=== PATIENT | male | born 1940 | race Caucasian/White ===

== ENCOUNTER → 2024-05-29 09:50 | Outpatient (REF) | payer MEDICARE, SELFPAY | LOC: RAD 09:50 | PROVIDERS: ATTENDING PHYSICIAN Physician Assistant; FAMILY PHYSICIAN Family Medicine | DX: K55.1 Chronic vascular disorders of intestine (principal); I73.9 Peripheral vascular disease, unspecified | CPT/HCPCS: 93922; 93925; 93975 ==

== ENCOUNTER → 2024-09-18 10:01 | Outpatient (REF) | payer MEDICARE, SELFPAY | LOC: RAD 10:01 | PROVIDERS: ATTENDING PHYSICIAN Surgery Vascular Surgery; FAMILY PHYSICIAN Family Medicine | DX: I73.9 Peripheral vascular disease, unspecified (principal) | CPT/HCPCS: 93922; 93925 ==

== ENCOUNTER 2025-01-06 18:54 | Emergency (ER) | payer MEDICARE, SELFPAY ==
[2025-01-06 18:58] VITALS: BP 123/72
[2025-01-06 19:46] LABS: % Basophils 0.9 % (0-2); % Eosinophils 2.5 % (0-6); % Immature Granulocytes 0.3 % (0-0.5); % Lymphocytes 9.8 % (20.5-51.1); % Monocytes 6.9 % (1.7-9.3); % Neutrophils 79.6 % (42.2-75.2); ALT (SGPT) 15 U/L (0-50); AST (SGOT) 25 U/L (17-59); Absolute Basophils 0.1 10^3/uL (0-0.2); Absolute Eosinophils 0.3 10^3/uL (0-0.7); Absolute Lymphocytes 1.1 10^3/uL (1.2-3.4); Absolute Monocytes 0.8 10^3/uL (0.1-0.6); Absolute Neutrophils 8.7 10^3/uL (1.4-6.5); Albumin 4.5 g/dl (3.5-5.0); Alkaline Phosphatase 89 U/L (38-126); Blood Urea Nitrogen 28 mg/dl (9-20); Carbon Dioxide 27 mmol/L (22-30); Chloride 103 mmol/L (98-107); Glucose 189 mg/dl (70-99); Hematocrit 46.9 % (39.0-52.0); Hemoglobin 15.8 g/dL (13.0-18.0); Mean Corp Hgb Conc. 33.7 g/dL (33.0-37.0); Mean Corpuscular Hgb 29.4 pg (27.0-31.0); Mean Corpuscular Volume 87.3 fL (80.0-94.0); Mean Platelet Volume 11.2 fL (7.4-10.4); Nucleated Red Blood Cells % 0 % (-); Platelet Count 146 10^3/uL (130-400); Potassium 4.7 mmol/L (3.5-5.1); Red Blood Cell Count 5.37 10^6/uL (4.70-6.10); Red Cell Dist. Width 13.1 % (11.5-14.5); Sodium 138 mmol/L (135-145); Total Bilirubin 0.7 mg/dl (0.2-1.3); Total Protein 7.5 g/dl (6.3-8.2); White Blood Cell Count 10.9 10^3/uL (4.8-10.8); eGFR 45.62
[2025-01-06 20:05] LABS: Lipase 114 U/L (23-300)
--- NOTE | 2025-01-06 21:04 | ED.GENMED ---
History of Present Illness
General
Chief Complaint: Abdominal Pain
Time Seen by Provider: 01/06/25 20:59
History of Present Illness
History of Present Illness:
TIME OF INITIAL ENCOUNTER:
HPI: The patient has a history of vascular disease known to Dr. Lin. Today, he took a nap after lunch and woke up with diffuse abdominal pain. It was described as relatively severe earlier but currently has spontaneously improved significantly.
He states his appetite is normal currently. He denies any nausea vomiting or diarrhea. He has no chest pain.
EXAM:
GENERAL: Well appearing in no distress
HEENT: Moist oral mucosa
CARDIOVASCULAR: No murmurs, normal heart rate, regular rhythm, No chest wall tenderness
PULMONARY: No respiratory distress, breath sounds are clear and equal
ABDOMEN: Soft with no peritoneal signs, mild diffuse abdominal tenderness more so in the left upper quadrant
NEUROLOGIC: Excellent strength all extremities, no coordination deficits
PSYCHIATRIC: Appropriate mental status, normal insight and judgement
EXTREMITIES: Nontender, no edema, moves all extremities equally
SKIN: No rash, no lesions
NUMBER AND COMPLEXITY OF PROBLEMS ADDRESSED AT THE ENCOUNTER
� Chronic conditions affecting care: CAD, high blood pressure, hyperlipidemia, GERD, diabetes, has had arterial vascular procedures at the carotid and lower extremities
� Acute Exacerbation and/or Progression of Chronic Illness: This is an acute problem
� Differential Diagnosis includes: Viral syndrome, mesenteric ischemia, doubt bowel obstruction
AMOUNT AND/OR COMPLEXITY OF DATA TO BE REVIEWED AND ANALYZED
� I performed an independent evaluation of and my interpretation is:
EKG:
CT: CT imaging personally reviewed and I agree with radiologist interpretation
X-rays:
Laboratory Studies: White count slightly elevated 10.9, hemoglobin normal, mild renal insufficiency with a creatinine of 1.5 is near baseline
Other:
� Review of other/old records: I reviewed records. 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
� Clinical information was obtained by an independent historian: Spoke to at bedside
� Prescriptions/Medications Considered but not given:
� Further testing considered but not performed:
RISK OF COMPLICATIONS AND/OR MORBIDITY OR MORTALITY OF PATIENT MANAGEMENT
� Social determinants of health affecting care: Lives at home
� Discussion with other providers:
� Escalation of care including admission/observation vs risk of discharge considered: The patient does have renal insufficiency but is near baseline�he was given IV fluids as he was given IV contrast tonight. He states that his
symptoms have spontaneously improved even prior to arrival.
ANY OTHER UPDATES:
10:45 PM: I reassessed patient. He was only given IV fluids without any other analgesia. He continues to overall feel improved.
Past History
Past History
ED Past Medical History: CAD, HTN, Hypercholesterolemia, NIDDM and Other (Hypercholesterolemia,)
ED Past Surgical History: Cardiac (CABG, Stents)
Social History
Tobacco: Former smoker
Alcohol: Occasional
Personal:
Living: with family
Family History
Family History: Negative Diabetes, Hypertension or CAD
Phy Exam
Physical Exam
Physical Exam:
See HPI
Course
Orders/Labs/Results
Orders:
Orders
01/06/25 19:01
Electrocardiogram (*1) Urgent
Reason for Study: Abdominal Pain
EKG- Treatment ONCE
01/06/25 19:09
Complete Blood Count/With Diff Urgent
Comprehensive Metabolic Panel Urgent
Lipase Urgent
01/06/25 21:08
CT Abd/pelvis Angio W/wo Iv Urgent
Comment:
Reason For Exam: diffuse abd pain; known>75% stenosis at SMA origin
01/06/25 21:12
0.9% Sodium Chloride 1000 ml [Nss] 1,000 ml IV BOLUS
01/06/25 21:32
Lactic Acid Urgent
Abnormal Lab Results
01/06/25
19:09
WBC 10.9 H 10^3/uL
(4.8-10.8)
MPV 11.2 H fL
(7.4-10.4)
Absolute Neuts (auto) 8.7 H 10^3/uL
(1.4-6.5)
Absolute Lymphs (auto) 1.1 L 10^3/uL
(1.2-3.4)
Absolute Monos (auto) 0.8 H 10^3/uL
(0.1-0.6)
Neutrophils % 79.6 H %
(42.2-75.2)
Lymphocytes % 9.8 L %
(20.5-51.1)
BUN 28 H mg/dl
(9-20)
Creatinine 1.5 H mg/dL
(0.7-1.3)
Glucose 189 H mg/dl
(70-99)
01/06/25 19:09
01/06/25 19:09
Vital Signs
Initial and Last Documented VS:
Initial Vital Signs
Temp Pulse Resp BP Pulse Ox
36.5 C 64 16 123/72 96
01/06/25 18:58 01/06/25 18:58 01/06/25 18:58 01/06/25 18:58 01/06/25 18:58
Last Documented Vital Signs
Temp Pulse Resp BP Pulse Ox
36.5 C 57 16 145/89 97
01/06/25 18:58 01/06/25 22:00 01/06/25 21:29 01/06/25 22:00 01/06/25 22:02
*Critical Care Note
Total Time (30-74mins, 75-104mins- exclusive of procedures): Not Applicable
ED Attending Note
-
Portions of this chart may have been created with voice recognition software.� Occasional wrong word or��sound alike� substitutions may have occurred due to the inherent limitations of voice recognition software.
Discharge Plan
Departure
Patient Disposition: Home (Routine Discharge)
Date of Disposition: 01/06/25
Time of Disposition: 22:59
Patient with high blood pressure during this ER visit?: Yes
Discharge Problem:
Abdominal pain
Instructions: Abdominal Pain, BLOOD PRESSURE
Prescriptions:
No Action
nebivolol 10 MG tablet
20 mg PO DAILY
glipizide 2.5 MG tablet extended release 24hr
5 mg PO DAILY
clopidogrel 75 MG tablet
75 mg PO DAILY Qty: 30 2RF
pantoprazole 20 mg Tablet,Delayed Release (Dr/Ec)
20 mg PO DAILY
Rx Instructions:
1 hour before breakfast
mupirocin 2 % ointment
1 applic intranasal BID Qty: 1 0RF
Patient Comments:
patient applied this am , has been applying bid since thursday 01/04
Farxiga 10 mg Tablet
10 mg PO DAILY
aspirin 325 mg Tablet
325 mg PO DAILY Qty: 30 0RF
Rx Instructions:
Take daily x4 weeks for blood clot prevention; then resume Aspirin 81 mg daily.
docusate sodium 100 mg Capsule
100 mg PO BID Qty: 30 0RF
acetaminophen [Acetaminophen Extra Strength] 500 mg tablet
1,000 mg PO Q6H Qty: 60 0RF
Rx Instructions:
DO NOT exceed >4000 mg daily.
lisinopril 20 MG tablet
20 mg PO DAILY Qty: 1 0RF
Rx Instructions:
HOLD if systolic blood pressure <130 while on Oxycodone.
lidocaine [Aspercreme (lidocaine)] 4 % Adhesive Patch,Medicated
2 patch topical DAILY Qty: 30 0RF
Rx Instructions:
Over the counter. Remove nightly.
Apply to sides of right knee/thigh. DO NOT place over incision.
tramadol 50 mg Tablet
50 mg PO Q6HPRN PRN (Reason: severe breakthrough pain) Qty: 30 0RF
Rx Instructions:
Dx total joint. Ongoing therapy.
cyanocobalamin (vitamin B-12) 1,000 mcg capsule
1,000 mcg PO DAILY Qty: 30 0RF
Rx Instructions:
Over the counter. Start daily due to vitamin b12 deficiency.
sennosides [senna] 8.6 mg Tablet
17.2 mg PO BIDPRN PRN (Reason: constipation) Qty: 30 0RF
Referrals:
Jacob Marina MD [Family Provider] -
Activity Restrictions/Additional Instructions:
The cause of your pain is unclear. Your white blood cell count is minimally elevated. Your kidney function is slightly impaired but similar to baseline. The lactic acid level is normal. The radiologist did not see anything acute on your
abdominal CT. It did show the >75% stenosis at the SMA which you have had before. Return here if worse or other concerns.
Interventions
Interventions:
*Risk Screen - Suicide Last Done: 01/06/25 18:58
*General Assessment Last Done: 01/06/25 21:28
*Neglect/Abuse Screening Last Done: 01/06/25 18:58
*ED COVID-19 Vaccine History Last Done: 01/06/25 21:29
YE-Dxzaid-Vzeeobcwaw Assessment Last Done: 01/06/25 21:29
Discharge Date and Time
Print Language: ALB[place]
[2025-01-06 21:28] VITALS: BMI 25.4
[2025-01-06 21:29] VITALS: BP 131/59
[2025-01-06] MEDS: NSS 1000 IV (21:29)
[2025-01-06 21:49] LABS: Lactic Acid 1.4 mmol/L (0.7-2.0)
[2025-01-06 22:00] VITALS: BP 145/89
== END 2025-01-06 23:08 | disposition home or self-care (01) ==
LOC: EMR 18:54
PROVIDERS: Emergency Medicine; EMERGENCY PHYSICIAN Emergency Medicine; FAMILY PHYSICIAN Family Medicine
DX: R10.9 Unspecified abdominal pain (principal); I99.9 Unspecified disorder of circulatory system; I25.10 Atherosclerotic heart disease of native coronary artery without angina pectoris; E78.00 Pure hypercholesterolemia, unspecified; E11.9 Type 2 diabetes mellitus without complications; I10 Essential (primary) hypertension; Z87.891 Personal history of nicotine dependence; Z95.1 Presence of aortocoronary bypass graft; Z95.5 Presence of coronary angioplasty implant and graft
CPT/HCPCS: 99284; 96360; 74174; 80053; 83605; 83690; 85025; 93005; Q9967

== ENCOUNTER → 2025-04-01 12:53 | Outpatient (REF) | payer MEDICARE, SELFPAY | LOC: RAD 12:53 | PROVIDERS: ATTENDING PHYSICIAN Surgery Vascular Surgery; FAMILY PHYSICIAN Family Medicine | DX: I73.9 Peripheral vascular disease, unspecified (principal) | CPT/HCPCS: 93922; 93925 ==

== ENCOUNTER → 2025-09-22 12:13 | Outpatient (REF) | payer MEDICARE, SELFPAY | LOC: RAD 12:13 | PROVIDERS: ATTENDING PHYSICIAN Surgery Vascular Surgery; FAMILY PHYSICIAN Family Medicine | DX: I73.9 Peripheral vascular disease, unspecified (principal) | CPT/HCPCS: 93922; 93925 ==